=== PATIENT | female | born 1980 | race African-American/Black ===

== ENCOUNTER 2022-11-14 07:46 | Emergency (ER) | payer OTHER, SELFPAY ==
[2022-11-14 07:50] VITALS: BP 188/64; PULSE 83; RESP 24; TEMP 36.6; O2SAT 96; BMI 41.2
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
[2022-11-14 07:56] VITALS: O2SAT 94
[2022-11-14 08:12] VITALS: O2SAT 94
[2022-11-14] MEDS: ALBUTEROL SULFATE 2.5 MG/3 ML VIAL NEB IH (08:12)
[2022-11-14] MEDS: METHYLPREDNISOLONE SOD SUCC PF 125 MG/2 ML VIAL IVP (08:17)
[2022-11-14 08:26] VITALS: PULSE 86; RESP 21; O2SAT 97
[2022-11-14] MEDS: IPRATROPIUM/ALBUTEROL SULFATE 3 ML AMPUL.NEB IH ×2 (08:26→09:37)
[2022-11-14] MEDS: ALBUTEROL SULFATE 200 PUFF/6.7 GM INHALER IH (08:26)
[2022-11-14 08:33] LABS: Basophils Percent Auto 0.3 % (0.2-2.0); Eosinophils Absolute Auto 0.3 10^3/uL (0.0-0.7); Hematocrit 41.8 % (36.0-48.0); Hemoglobin 12.2 g/dL (12.0-16.0); Immature Granulocytes Abs Auto 0.05 10^3/uL (0.00-0.03); Immature Granulocytes Pct Auto 0.5 % (0.0-0.5); Lymphocytes Absolute Auto 2.1 10^3/uL (1.2-3.8); Lymphocytes Percent Auto 19.5 % (20.5-60.0); Mean Corpuscular HGB Conc 29.2 g/dL (29.9-35.2); Mean Corpuscular Hemoglobin 21.6 pg (26.7-34.0); Mean Platelet Volume 10.6 fL (9.5-13.5); Monocytes Absolute Auto 0.6 10^3/uL (0.3-0.8); Monocytes Percent Auto 5.1 % (1.7-12.0); Neutrophils Absolute Auto 7.8 10^3/uL (1.4-6.5); Neutrophils Percent Auto 71.6 % (43.0-75.0); Platelet Count 411 10^3/uL (150-450); Red Blood Count 5.65 10^6/uL (4.20-5.40); Red Cell Distribution Width 17.6 % (11.0-15.0); White Blood Count 10.8 10^3/uL (4.0-11.0)
[2022-11-14 08:47] LABS: Alanine Aminotransferase 21 U/L (14-59); Albumin Globulin Ratio 0.8; Albumin Level 3.3 g/dL (3.4-5.0); Alkaline Phosphatase 126 U/L (46-116); Anion Gap 14.6; Aspartate Amino Transferase 6 U/L (15-37); BUN Creatinine Ratio 21.3; Bilirubin Total 0.1 mg/dL (0.2-1.0); Calcium 8.6 mg/dL (8.5-10.1); Carbon Dioxide 25.4 mmol/L (21.0-32.0); Chloride 100 mmol/L (98-107); Estimated GFR (African America >60 (>=60); Estimated GFR (Non-African Ame >60 (>=60); Glucose 323 mg/dL (74-106); Sodium 136 mmol/L (136-145); Total Protein 7.3 g/dL (6.4-8.2)
[2022-11-14 09:27] VITALS: O2SAT 98
== END 2022-11-14 09:30 | disposition home or self-care (01) ==
PROVIDERS: Emergency Provider Emergency Medicine
DX: J45.901 Unspecified asthma with (acute) exacerbation (principal); Z79.899 Other long term (current) drug therapy
CPT/HCPCS: 36415; 80053; 85025; 94640; 96374; 99284; J2930